=== PATIENT | female | born 1980 | race Caucasian/White ===

== ENCOUNTER 2023-11-12 04:00 | Inpatient (IN) | payer OTHER ==
[2023-11-06 12:45] VITALS: BMI 25.9
[2023-11-12] MEDS ORDERED: PHENAZOPYRIDINE HCL 100 MG TABLET (FP) PO ONE (06:29)
[2023-11-12] MEDS ORDERED: ACETAMINOPHEN 500 MG TABLET (FP) PO ONE (06:29)
[2023-11-12] MEDS ORDERED: CEFAZOLIN 2 GM in DEXTROSE 5%-WATER - 100 ML IVPB ONE (06:29)
[2023-11-12] MEDS ORDERED: TRANEXAMIC ACID 1000 MG/10 ML VIAL IVPUSH ONE (06:29)
[2023-11-12] MEDS ORDERED: GABAPENTIN 300 MG CAPSULE PO ONE (06:29)
[2023-11-12] MEDS ORDERED: ACETAMINOPHEN 500 MG TABLET (FP) ONE (06:57)
[2023-11-12] MEDS ORDERED: GABAPENTIN 300 MG CAPSULE ONE (06:57)
[2023-11-12] MEDS ORDERED: PHENAZOPYRIDINE HCL 100 MG TABLET (FP) ONE (06:58)
[2023-11-12] MEDS ORDERED: ceFAZolin SODIUM 1 GM VIAL ONE (06:58)
[2023-11-12] MEDS ORDERED: PROPOFOL 20 ML ONE (07:19)
[2023-11-12] MEDS ORDERED: MIDAZOLAM HCL 2 MG/2 ML SINGLE DOSE VIAL ONE (07:19)
[2023-11-12] MEDS ORDERED: ROCURONIUM BROMIDE 50 MG/5 ML SYRINGE ONE (07:19)
[2023-11-12] MEDS ORDERED: SUCCINYLCHOLINE CHLORIDE 200 MG/10 ML SYRINGE ONE (07:19)
[2023-11-12] MEDS ORDERED: ceFAZolin SODIUM 1 GM VIAL IVPB ONE (08:19)
[2023-11-12] MEDS ORDERED: NEOSTIGMINE METHYLSULFATE 0.5 MG/1 ML - 10 ML MDV ONE (09:39)
[2023-11-12] MEDS ORDERED: oxyCODONE HCL 5 MG TABLET PO PRN (10:00)
[2023-11-12] MEDS ORDERED: ACETAMINOPHEN 325 MG TABLET (FP) PO PRN (10:00)
[2023-11-12] MEDS ORDERED: BISACODYL 5 MG TABLET.DR (FP) PO PRN (10:00)
[2023-11-12] MEDS ORDERED: ONDANSETRON 4 MG/2 ML VIAL IVPUSH PRN ×2 (10:00→10:06)
[2023-11-12] MEDS ORDERED: IBUPROFEN 800 MG/8 ML IJ IVPB PRN (10:00)
[2023-11-12] MEDS ORDERED: NALOXONE HCL 0.4 MG/ML VIAL IVPUSH PRN (10:06)
[2023-11-12] MEDS ORDERED: morphine SULFATE/PF 1 MG/2 ML (2cc Syringe - QUVA) IT ONE (10:06)
[2023-11-12] MEDS: CEFAZOLIN 1 GM in DEXTROSE 5%-WATER - 50 ML IVPB SCH ×2 (11:57→17:00)
[2023-11-12] MEDS: LACTATED RINGERS SOLUTION 1,000 ML IV SCH (12:00)
[2023-11-12 14:37] VITALS: RESP 18
[2023-11-12 19:21] LABS: HEMATOCRIT 32.6 % (32.4-45.2); MCH 30.4 pg (25.7-33.7); MCHC 33.7 g/dl (32.0-36.0); MEAN PLT VOLUME 9.2 fl (7.5-11.1); PLATELET COUNT 230 10^3/uL (134-434); RBC 3.62 M/mm3 (3.60-5.2); WHITE BLOOD COUNT 8.1 K/mm3 (4.0-10.0)
[2023-11-12 19:38] LABS: POTASSIUM 4.7 mmol/L (3.5-5.1)
[2023-11-12 19:40] LABS: CALCIUM 8.5 mg/dL (8.5-10.1)
[2023-11-12 19:41] LABS: BLOOD UREA NITROGEN 9.1 mg/dL (7-18)
[2023-11-12 19:44] LABS: CREATININE 0.6 mg/dL (0.55-1.3)
[2023-11-12] MEDS: SIMETHICONE 80 MG TAB.CHEW (FP) PO PRN (23:08)
[2023-11-13] MEDS: CEFAZOLIN 1 GM in DEXTROSE 5%-WATER - 50 ML IVPB SCH ×3 (01:08→09:20)
[2023-11-13] MEDS: LACTATED RINGERS SOLUTION 1,000 ML IV SCH (01:25)
[2023-11-13] MEDS: SIMETHICONE 80 MG TAB.CHEW (FP) PO PRN ×2 (06:07→21:36)
[2023-11-13] MEDS: DOCUSATE SODIUM 100 MG CAPSULE (FP) PO PRN ×2 (06:08→21:36)
[2023-11-13 07:48] LABS: HEMATOCRIT 30.1 % (32.4-45.2); HEMOGLOBIN 10.3 GM/dL (10.7-15.3); MCH 30.6 pg (25.7-33.7); MEAN CELL VOLUME 89.9 fl (80-96); MEAN PLT VOLUME 9.2 fl (7.5-11.1); PLATELET COUNT 207 10^3/uL (134-434); RBC 3.35 M/mm3 (3.60-5.2); RDW 13.2 % (11.6-15.6); WHITE BLOOD COUNT 9.2 K/mm3 (4.0-10.0)
[2023-11-13 07:50] LABS: POTASSIUM 3.8 mmol/L (3.5-5.1)
[2023-11-13 07:51] LABS: CALCIUM 8.7 mg/dL (8.5-10.1)
[2023-11-13 07:52] LABS: BLOOD UREA NITROGEN 6.3 mg/dL (7-18)
[2023-11-13 07:55] LABS: CREATININE 0.6 mg/dL (0.55-1.3)
[2023-11-13] MEDS: ENOXAPARIN NA (PORCINE) 40 MG/0.4 ML DISP.SYRIN SQ SCH (09:20)
[2023-11-13] MEDS ORDERED: oxyCODONE HCL 5 MG TABLET PO PRN ×2 (10:42)
[2023-11-13] MEDS: ALBUTEROL SULFATE 0.021% (0.63 MG/3 ML) VIAL.NEB NEB SCH ×2 (13:08→16:21)
[2023-11-13] MEDS: ACETAMINOPHEN 500 MG TABLET (FP) PO PRN (13:23)
[2023-11-14] MEDS: ALBUTEROL SULFATE 0.021% (0.63 MG/3 ML) VIAL.NEB NEB SCH ×2 (07:39→12:06)
[2023-11-14] MEDS: ACETAMINOPHEN 500 MG TABLET (FP) PO PRN (07:59)
[2023-11-14] MEDS: ENOXAPARIN NA (PORCINE) 40 MG/0.4 ML DISP.SYRIN SQ SCH (09:59)
[2023-11-14] MEDS: SIMETHICONE 80 MG TAB.CHEW (FP) PO PRN (09:59)
[2023-11-14] MEDS ORDERED: BISACODYL 10 MG SUPP.RECT PR PRN (10:02)
[2023-11-14 12:51] VITALS: BP 137/87; PULSE 75; TEMP 98.7
== END 2023-11-14 12:30 | disposition home or self-care (01) | DRG 519 ==
LOC: UNDOADMIN 04:00 → J2C 04:00 → EDSTATUS 10:15 → J3W 13:29
PROVIDERS: ADMIT Obstetrics & Gynecology; ATTEND Obstetrics & Gynecology
PROC: 0UB24ZZ Excision of Bilateral Ovaries, Percutaneous Endoscopic Approach (ICD-10-PCS; 2023-11-12)
PROC: 8E0W4CZ Robotic Assisted Procedure of Trunk Region, Percutaneous Endoscopic Approach (ICD-10-PCS; 2023-11-12)
PROC: 0UT9FZZ Resection of Uterus, Via Natural or Artificial Opening With Percutaneous Endoscopic Assistance (ICD-10-PCS; principal; 2023-11-12 07:30)
PROC: 0UT7FZZ Resection of Bilateral Fallopian Tubes, Via Natural or Artificial Opening With Percutaneous Endoscopic Assistance (ICD-10-PCS; 2023-11-12 07:30)
DX: D25.9 Leiomyoma of uterus, unspecified (principal); J90 Pleural effusion, not elsewhere classified; J98.11 Atelectasis; N80.03 Adenomyosis of the uterus; N83.202 Unspecified ovarian cyst, left side; N83.201 Unspecified ovarian cyst, right side; N72 Inflammatory disease of cervix uteri
CPT/HCPCS: 36415; 71275-TC; 80048; 81025; 85027; 86850; 86900; 86901; 88304-TC; 88305-TC; 88307-TC; 94640; 94760; Q9967